=== PATIENT | male | born 1985 | race Caucasian/White ===

== ENCOUNTER 2018-05-20 09:43 | Emergency (ER) | payer OTHER, SELFPAY ==
[2018-05-20 09:46] VITALS: BP 164/103; PULSE 112; RESP 18; TEMP 36.9; O2SAT 98; BMI 43.5
--- NOTE | 2018-05-20 10:06 | RAD_ITS ---
STUDY: X-RAY - LUMBAR SPINE REASON FOR EXAM: Male, 32 years old. LOWER BACK PAIN W/N/T BILATERAL LOWER EXTREMITIES. TECHNIQUE: 3 view(s) of the lumbar spine were obtained. COMPARISON: None FINDINGS: Normal lumbar lordosis. There is no substantial scoliosis. There is a normal alignment of the vertebrae. There is multilevel endplate spondylosis of the lumbar vertebrae. Normal disc space heights. The soft tissue structures are unremarkable. RAD/Lumbar Spine 2 or 3 Views IMPRESSION: No demonstrated fractures Electronically Signed: Daniel Gillespie MD at 10:55 EDT Tel , Service support ,
[2018-05-20 10:51] LABS: Anion Gap 10 (5-15); BUN 10 mg/dL (7-18); CPK Total, Creatine Kinase 314 U/L (39-308); Calcium,Total 8.8 mg/dL (8.5-10.1); Chloride 98 mmol/L (98-107); Creatinine, Serum 0.77 mg/dL (0.70-1.30); EST Glomerular Filtration Rate 124 mL/min (>60); Est Glom Filt Rate - Afr Amer 150 mL/min (>60); Estimated Creatinine Clearance 154.21 ml/min; Glucose 298 mg/dL (74-106); Potassium 4.1 mmol/L (3.5-5.1); Sodium Level 137 mmol/L (136-145)
--- NOTE | 2018-05-20 12:27 | ED.VISSUMM ---
- ER Visit Summary Date of Service: 05/20/18 Chief Complaint: Feet are asleep History of Present Illness: The patient is a 32 M with pins and needles feeling in his bilateral feet and lower legs. Symptoms started yesterday after canoeing. They were worse this morning. No back pain or back injuries. This was a new activity for him. He never had this before. No weakness. No recent illness or fevers. No skin changes. Physical Examination: Vitals unremarkable except for hypertension. Back is normal and nontender. Extremities are normal to inspection. Good range of motion. Pulses intact distally. Skin appears normal. Good range of motion and no deformities. He does have some tenderness and subjective paresthesias to his feet and lower legs starting at the mid zaman area, and this is symmetric. Test Results: Lumbar x-ray unremarkable. CPK 300 and glucose 300. Emergency Department Course and Treatment: This was concerning for a sciatica. I discussed with Dr. Ramirez who agreed. Treat as sciatica. No indication for further imaging or diagnostic studies. Return for any new or worsening symptoms like weakness, descending pain, skin changes, fever, or any other concerns. Treatment Plan: Written for naproxen and Flexeril. Follow-up with primary care. Disposition: Discharged Impression: 1. Bilateral sciatica This note was generated with [employer] dictation software. It may contain incorrect words, spelling, and punctuation that were not noted in review of the chart prior to signing ED Disposition - Plan for ED Patient: Chief Complaint: Lower Extremity Injury Referrals: Care Physician,No Primary [Primary Care Provider] -
--- NOTE | 2018-05-20 12:30 | ED.DEP ---
ED Disposition - Plan for ED Patient: Chief Complaint: Lower Extremity Injury Instructions: ED Sciatica Prescriptions: Naproxen [Naprosyn] 500 mg PO BID #14 tab Cyclobenzaprine [Flexeril] 10 mg PO TID PRN #20 tab PRN Reason: Muscle Spasm Referrals: Negro Bates DO [STAFF PHYSICIAN] -
[2018-05-20 12:32] VITALS: BP 134/90; PULSE 96; RESP 16; O2SAT 97
--- NOTE | 2018-05-20 12:32 | ED.RN ---
REVIEWED D/C INSTRUCTIONS, FOLLOW UP CARE, AND S/S THAT WOULD WARRANT A RETURN TO THE ED WITH PT. PT VERBALIZED AN UNDERSTANDING AND DENIES FURTHER QUESTIONS FOR THIS RN. PT SKIN P/W/D, RESP EVEN AND UNLABORED, PT A&O X 3, NO DISTRESS NOTED. PT AMBULATED OUT OF ED, GAIT STEADY.
== END 2018-05-20 12:36 | disposition home or self-care (01) ==
PROVIDERS: Emergency Provider Emergency Medicine
DX: M54.32 Sciatica, left side (principal); M54.31 Sciatica, right side
CPT/HCPCS: 72100; 80048; 82550; 99283; A4216

== ENCOUNTER 2018-06-13 09:48 | Emergency (ER) | payer OTHER, SELFPAY ==
[2018-06-13 09:49] VITALS: BP 175/111; PULSE 124; RESP 16; TEMP 36.6; O2SAT 97; BMI 42.2
--- NOTE | 2018-06-13 10:47 | ED.VIS.GEN ---
History of Present Illness Chief Complaint: Upper Extremity Injury Informant: Patient Onset: - - 2-3 years Context: Gradual Onset Timing: Continuous, Waxes and wanes Quality: ache Location: left shoulder Current Severity: Moderate Maximum Severity: Moderate Worsened by: overhead movements Relieved by: rest Associated Symptoms: none Narrative: Patient states he has had this pain for a couple years. It is not necessarily worse now, he is just tired of it and decided to come and have it checked out today. He had it evaluated one time in the remote past by some doctor in [place] he has never seen orthopedics. They told him it was a muscle strain, and he is concerned that it is not since it has been ongoing. Overhead movements are definitely the worst. No numbness shooting down his arm or hand. He is right-hand dominant. Denies any repetitive motions at work. Cannot recall if there was a specific injury or not that started this. Past Medical History - Allergies and Home Meds Allergies/Adverse Reactions: Allergies No Known Allergies Allergy (Verified 05/20/18 10:03) Primary Care Physician: Care Physician,No Primary [Primary Care Provider] - Past Medical History: None Smoking Status: Never smoker Review of Systems Musculoskeletal: Reports: Extremity Pain. Denies: Myalgias, Arthralgias, Neck pain, Back pain Skin: Denies: Rash Neurological: Denies: Weakness, Numbness Physical Exam Vital Signs/Narrative: Vital Signs Temp Pulse Resp BP Pulse Ox 06/13/18 09:49 98 F 124 H 16 175/111 H 97 Inital Vital Signs reviewed: Yes General: Well nourished, Well developed Head: Normocephalic, Atraumatic Extremities: No edema, Tenderness - In left dorsal trapezius, posterior to the clavicle and medial to the acromion. No subacromial tenderness. No anterior shoulder tenderness. No deformity. Full range of motion as long as his elbow is below 90? abducted. He has a negative drop sign, however it increases his pain to attempt. Skin: Normal color, No rash. Negative for: Trauma Neurological: Alert, Oriented x3, Cranial nerves II-XII grossly intact, Normal Strength, Normal Sensation Psychological: Normal affect Diagnostic/Tx/Re-eval - Medical Decision Making Patient understands that this is not an acute emergency, and other than the x-ray that I obtained, I am not able to perform any other advanced imaging studies here that would be emergently helpful at this time. It is unusual for him to have pain in the trapezius muscle area that would be referred there from a shoulder joint problem proper. If he had a radiculopathy, he would be more likely to have some type of neurologic symptom, but he has none. He certainly could have some type of internal shoulder derangement. He may need an MRI to sort some of that out. I recommend supportive care, NSAIDs, ice as needed, avoiding overhead movements, and following up with orthopedics, to whom he is referred. He understands is comfortable with that plan. Of note, x-rays were normal, there were no calcifications in any of the rotator cuff musculature or anything else that gave any clues. ED Disposition - Plan for ED Patient: Disposition: Home or Assisted Living Chief Complaint: Upper Extremity Injury Diagnosis: Left shoulder pain Instructions: ED Shoulder Pain [facility] Referrals: Zachariah Garcia MD [STAFF PHYSICIAN] - (call for orthopaedics appt)
== END 2018-06-13 11:16 | disposition home or self-care (01) ==
PROVIDERS: Emergency Provider Emergency Medicine
DX: M25.512 Pain in left shoulder (principal)
CPT/HCPCS: 73030; 99282

== ENCOUNTER 2019-07-04 05:52 | Day surgery (SDC) | payer OTHER, SELFPAY ==
[2019-07-04 06:32] VITALS: BP 147/92; PULSE 95; RESP 18; TEMP 36.6; O2SAT 99; BMI 46.9
[2019-07-04] MEDS: Lactated Ringers 1,000 ML 100 ML IV (06:50)
[2019-07-04 07:00] LABS: Bedside Glucose 260 mg/dL (70-110)
[2019-07-04] MEDS: Insulin Lispro 100 UNIT/ML INSULN.PEN 6 UNIT SC (07:20)
--- NOTE | 2019-07-04 08:00 | FOR_PTH ---
PATIENT: JIGNESH JACKSON [place] [facility] [id number] AGE/SX: 33/M ROOM: RE07/04/[address]: Dr. Dell Pate MD : 1985 BED: DIS: 07/04/2019 SPEC #: [id number] RECD: 07/04/19 09:28 STATUS: MATTEO ROSA #: [id number] AVELINA: 07/04/19 08:[address]: Dell Pate DEPT: SURGICAL PATHOLOGY RECD BY: Ashwin Ybarra ENTERED: 07/04/19 12:59 SP TYPE: FORESKIN FRANKIE DR: Dr. Alhaji Moya MD Tissues: Skin of foreskin, NOS Procedures: Surgery Specimen Level III HEADER OPERATION: Circumcision PRE-OP DIAGNOSIS: Phimosis TISSUE SUBMITTED: Foreskin MICROSCOPIC DIAGNOSIS Foreskin, circumcision: Balanitis and hyperkeratosis. AM:eileen 07/07/19 MICROSCOPIC DESCRIPTION Slides are reviewed. GROSS DESCRIPTION Received in fixative is one container labeled with the patient's name and designated foreskin. The specimen consists of three irregular fragments of glistening, pink-roberto mucosa with attached hemorrhagic soft tissue that in aggregate measure 5 x 2.5 x 0.8 cm. Sections do not reveal mass lesion. Office Nurse Practitioner sections are submitted in one cassettes. / AM:eileen 07/04/19 TC:3 CPT: 84128
[2019-07-04] MEDS: Cefazolin 2 GM in 0.9% Normal Saline 100 ML IV (08:12)
[2019-07-04] MEDS: Bupivacaine Mpf 0.5% 30 ML VIAL (08:50)
--- NOTE | 2019-07-04 09:03 | PCM.DC.URO ---
Discharge Diet: Light diet - advance as tolerated Discharge Activity: Return to Normal Activity Call your doctor if your incision/area has: Continuous Slow Oozing, Sudden Increased Bleeding, Increased Pain/ Swelling, Increased Redness, Foul Smelling Discharge Additional Instructions: apply neosporin to circumcision three x per day for 1 month Allergies/Adverse Reactions: Allergies No Known Allergies Allergy (Verified 07/02/19 08:04) Medications to take at Discharge Insulin Glargine [Lantus (BKC)] 10 units SUBCUT DAILY 07/02/19 Insulin Lispro [Humalog] 5 - 10 unit SQ TID 07/02/19 Cephalexin [Keflex] 500 mg PO Q8 #15 cap 07/04/19 Hydrocodone/Acetaminophen [[place] 5-325 Tablet] 1 ea PO Q4H PRN PRN 5 Days #14 tab 07/04/19 The following prescriptions were given: Cephalexin [Keflex] 500 mg PO Q8 #15 cap Prescription Printed Hydrocodone/Acetaminophen [[place] 5-325 Tablet] 1 ea PO Q4H PRN PRN 5 Days #14 tab PRN Reason: Pain Prescription Printed Primary Care Physician: Alhaji Moya MD [Primary Care Provider] - Test Results: Test results from this visit will be discussed in further detail at your follow-up appointment, if applicable. Please Follow Up With: Dell Pate MD When: in 2 weeks, please call to make an appointment.
--- NOTE | 2019-07-04 09:07 | OP.PCM_ITS ---
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 Surgery/Procedure Performed:: Redo circumcision for buried penis and dilation of meatus for meatal stenosis Description of Surgical Findings:: 33-year-old male fairly obese as BMI is 46, he is 161 kg, who had a circumcision when he was a child he is then developed a chronic scar tissue around the foreskin and this is scarred over the head of the penis and because of this he has a buried penis that is stuck within the fat and is unable to retract and he is unable to use the penis. Says because of this is not been able to have intercourse. 33-year-old male was taken back to the operating room after smooth induction of anesthesia he was placed supine on the table the penis was shaved prepped and draped in usual sterile fashion on inspection he had a very tight phimotic ring of the left over foreskin that was causing the penis to be buried in the prepubic fat he was fairly obese but I think the main problem was mostly just the scar tissue around the end of the penis was preventing the penis from coming out during urination or during erections so started off by incising the dorsum and the ventral aspect of the scar tissue I was then allowed to retract the foreskin and the glans above there is very tight phimotic foreskin I then excised the edge of the foreskin widely got rid of the poor tissue and then excised all the way around the carrero and then dissected off that scar tissue foreskin all the way around. I then obtained hemostasis. I then reattached the remaining skin all the way around to the subcoronal skin interrupted stitches using 3-0 and 4-0 chromic stitches. Then inspected the meatus the meatus was pinpoint tight was able to get a wire through and then dilated the meatus with a 15 Brazilian balloon dilator and then used sounds to dilate the meatus further up to 16 Brazilian. After dilating this pulling up on the glans of the penis looked at the penis now was able to retract out of the fat pad hopefully will be functional for his urination and for intercourse. Dressings were placed is taken back to PACU in good condition he will follow-up in 2 weeks for review and checkup on his healing the will be given instructions. Type of Anesthesia:: General Drains: none - Admit VTE Documentation VTE Present on Admission: No VTE Mechan Device Prophylaxis: SCD's
[2019-07-04 09:12] VITALS: BP 106/62; BP 147/92; PULSE 95; RESP 16; TEMP 36.2; O2SAT 93
[2019-07-04 09:35] VITALS: BP 115/66; BP 147/92; PULSE 82; RESP 16; O2SAT 93
[2019-07-04 09:39] VITALS: BP 113/77; BP 147/92; PULSE 82; RESP 16; TEMP 36.1; O2SAT 94
--- NOTE | 2019-07-04 09:42 | SUR.PHASEI ---
BLOOD SUGAR 235, OK PER DR GALE
[2019-07-04 10:10] LABS: Bedside Glucose 235 mg/dL (70-110)
[2019-07-04 11:36] VITALS: BP 129/87; BP 147/92; PULSE 80; RESP 18; TEMP 36.3; O2SAT 97
== END 2019-07-04 11:38 | disposition home or self-care (01) ==
LOC: SDC 05:52 → AC 05:55
PROVIDERS: Family Provider Family Medicine; PCP Family Medicine; Referring Provider Urology; Visit Provider Urology
PROC: (CPT 54161; principal; 2019-07-04 07:45)
DX: N48.83 Acquired buried penis (principal); N35.911 Unspecified urethral stricture, male, meatal; N47.1 Phimosis; N48.1 Balanitis; N48.89 Other specified disorders of penis; E08.351 Diabetes mellitus due to underlying condition with proliferative diabetic retinopathy with macular edema; E66.9 Obesity, unspecified; Z68.42 Body mass index [BMI] 45.0-49.9, adult; Z79.4 Long term (current) use of insulin
CPT/HCPCS: 00920; 53605; 54161; 82962; 88304; J7120; C1726; C1769; J2405

== ENCOUNTER → 2019-07-17 17:07 | Outpatient (CLI) | payer OTHER, SELFPAY ==
[2019-07-04 06:32] VITALS: BMI 46.9
== END ==
PROVIDERS: Family Provider Family Medicine; PCP Family Medicine; Referring Provider Urology; Visit Provider Urology
DX: R82.998 Other abnormal findings in urine (principal)
CPT/HCPCS: 87077; 87086; 87088; 87186

== ENCOUNTER → 2019-12-04 | Outpatient (CLI) | payer OTHER, SELFPAY | END | disposition home or self-care (01) | LOC: LABSPEC 16:08 | PROVIDERS: PCP Family Medicine; Referring Provider Urology; Visit Provider Urology | DX: N39.0 Urinary tract infection, site not specified (principal) | CPT/HCPCS: 87077; 87086; 87088; 87186 ==